=== PATIENT | male | born 1945 | race Caucasian/White ===

== ENCOUNTER 2021-02-24 20:40 | Inpatient (IN) ==
[2021-02-24] MEDS ORDERED: 0.9 % Sodium Chloride 1,000 ML IVC ONE (21:52)
[2021-02-24] MEDS ORDERED: Isovue-370 500 ML BOTTLE IVP ONE (21:55)
[2021-02-24 22:31] LABS: Basophils % 0.4 %; Eosinophils % 0.8 %; Hematocrit 27.8 % (37.5-50.1); Hemoglobin 9.2 g/dL (12.9-16.9); Immature Granulocytes % 0.4 % (0-4); Immature Platelets 7.3 % (1.1-6.1); Lymphocytes # 0.7 K/mcL (0.6-4.6); Lymphocytes % 27.8 %; Mean Corpuscular HGB Conc 33.1 g/dL (31.6-35.5); Mean Corpuscular Hemoglobin 33.8 pg (28.0-33.3); Mean Corpuscular Volume 102.2 fL (83.0-100.0); Mean Platelet Volume 11.5 fL (9.4-12.4); Monocytes # 0.3 K/mcL (0.0-1.3); Monocytes % 12.5 %; Neutrophils # 1.5 K/mcL (1.6-8.9); Platelet Count 68 K/mcL (140-400); Red Blood Count 2.72 M/mcL (4.19-5.50); Red Cell Distribution Width 14.3 % (11.5-14.5); Segmented Neutrophils % 58.1 %; White Blood Count 2.6 K/mcL (4.3-11.1)
[2021-02-24 22:41] LABS: INR 1.1
[2021-02-24 22:52] LABS: Alanine Aminotransferase 9 Units/L (7-52); Albumin/Globulin Ratio 1.2 (1.1-2.2); Alkaline Phosphatase 105 Units/L (34-104); Aspartate Amino Transferase 15 Units/L (13-39); BUN/Creatinine Ratio 11 (6-26); Bilirubin,Total 0.2 mg/dL (0.3-1.0); Blood Urea Nitrogen 13 mg/dL (8-23); Calcium 8.1 mg/dL (8.6-10.3); Carbon Dioxide 23 mEq/L (23-29); Chloride 101 mEq/L (98-107); Globulin 2.5 g/dL (2.4-3.5); Glucose 112 mg/dL (70-105); Osmolality,Calculated 271 (280-300); Potassium 3.7 mEq/L (3.5-5.1); Sodium 130 mEq/L (136-145); Total Protein 5.5 g/dL (6.4-8.9); Troponin I < 0.03 ng/mL (< 0.04); eGFR For African Americans > 60 (> 60); eGFR For Non-African Americans > 60 (> 60)
[2021-02-25 02:31] LABS: Ethanol < 10 mg/dL (Less than 10)
[2021-02-25] MEDS ORDERED: Ondansetron 4 MG/2 ML VIAL IVP PRN (02:48)
[2021-02-25] MEDS ORDERED: Naloxone 0.4 MG/ML INJ IVP PRN (02:48)
[2021-02-25] MEDS ORDERED: 0.9 % Sodium Chloride 1,000 ML IVC SCH (04:00)
[2021-02-25 04:20] LABS: Mean Corpuscular Volume 102.8 fL (83.0-100.0); Red Cell Distribution Width 14.2 % (11.5-14.5)
[2021-02-25 04:22] LABS: Hematocrit 29.4 % (37.5-50.1); Hemoglobin 9.6 g/dL (12.9-16.9); Immature Platelets 8.7 % (1.1-6.1); Mean Corpuscular HGB Conc 32.7 g/dL (31.6-35.5); Mean Corpuscular Hemoglobin 33.6 pg (28.0-33.3); Mean Platelet Volume 11.6 fL (9.4-12.4); Red Blood Count 2.86 M/mcL (4.19-5.50); White Blood Count 2.4 K/mcL (4.3-11.1)
[2021-02-25 04:25] LABS: BUN/Creatinine Ratio 11 (6-26); Blood Urea Nitrogen 13 mg/dL (8-23); Calcium 8.2 mg/dL (8.6-10.3); Carbon Dioxide 25 mEq/L (23-29); Chloride 103 mEq/L (98-107); Glucose 97 mg/dL (70-105); Osmolality,Calculated 276 (280-300); Potassium 4.1 mEq/L (3.5-5.1); Sodium 133 mEq/L (136-145); eGFR For African Americans > 60 (> 60); eGFR For Non-African Americans 59 (> 60)
[2021-02-25 04:28] LABS: Platelet Count 65 K/mcL (140-400)
[2021-02-25 07:09] LABS: Basophils % 0.4 %; Eosinophils % 1.6 %; Immature Granulocytes % 0.8 % (0-4); Lymphocytes # 0.9 K/mcL (0.6-4.6); Lymphocytes % 37.8 %; Monocytes # 0.3 K/mcL (0.0-1.3); Monocytes % 12.7 %; Neutrophils # 1.1 K/mcL (1.6-8.9); Segmented Neutrophils % 46.7 %
[2021-02-25 07:20] LABS: Platelet Estimate Decreased (Normal)
[2021-02-25] MEDS ORDERED: Perflutren Lipid Microsphere 1.3 ML in 0.9 % Sodium Chloride 8.7 ML IVP PRN (12:52)
[2021-02-25] MEDS: 0.9 % Sodium Chloride 1,000 ML IVC SCH (15:47)
[2021-02-25 17:41] LABS: Folate 4.5 ng/mL (3.0-16.0)
[2021-02-25 18:09] LABS: Ferritin 98 ng/mL (20-250); Iron 104 mcg/dL (65-175)
[2021-02-26] MEDS: 0.9 % Sodium Chloride 1,000 ML IVC SCH (04:17)
[2021-02-26 05:07] LABS: Basophils % 0.3 %; Eosinophils # 0.1 K/mcL (0.0-0.6); Eosinophils % 1.9 %; Hematocrit 27.2 % (37.5-50.1); Immature Granulocytes % 0.8 % (0-4); Immature Platelets 7.6 % (1.1-6.1); Lymphocytes # 1.2 K/mcL (0.6-4.6); Lymphocytes % 31.2 %; Mean Corpuscular HGB Conc 33.1 g/dL (31.6-35.5); Mean Corpuscular Hemoglobin 33.3 pg (28.0-33.3); Mean Corpuscular Volume 100.7 fL (83.0-100.0); Monocytes # 0.3 K/mcL (0.0-1.3); Neutrophils # 2.2 K/mcL (1.6-8.9); Platelet Count 54 K/mcL (140-400); Red Cell Distribution Width 14.2 % (11.5-14.5); Segmented Neutrophils % 56.8 %; White Blood Count 3.8 K/mcL (4.3-11.1)
[2021-02-26 05:07] LABS: Bilirubin,Urine Negative (Negative); Blood,Urine Negative (Negative); Clarity,Urine Clear (Clear); Color,Urine Colorless (Yellow); Glucose,Urine (UA) Normal (Normal); Ketones,Urine Negative (Negative); Leukocyte Esterase,Urine Negative (Negative); Nitrite,Urine Negative (Negative); PH,Urine 6.5 pH Units (5.0-8.0); Protein,Urine Negative (Neg-Trace); Specific Gravity,Urine 1.011 (1.010-1.025); Urobilinogen,Urine Normal (Normal)
[2021-02-26 05:24] LABS: BUN/Creatinine Ratio 11 (6-26); Blood Urea Nitrogen 11 mg/dL (8-23); Calcium 8.3 mg/dL (8.6-10.3); Carbon Dioxide 23 mEq/L (23-29); Chloride 104 mEq/L (98-107); Glucose 92 mg/dL (70-105); Osmolality,Calculated 273 (280-300); Sodium 132 mEq/L (136-145); eGFR For African Americans > 60 (> 60); eGFR For Non-African Americans > 60 (> 60)
[2021-02-26] MEDS ORDERED: Cyanocobalamin (B-12) 1,000 MCG TABLET PO SCH (13:30)
[2021-02-26] MEDS: Metoprolol XL (24 HR) Succ 25 MG TAB.ER.24H PO SCH (14:31)
[2021-02-26] MEDS: Budesonide/Formoterol 160/4.5 1 PUFF INH IH SCH (20:33)
[2021-02-26] MEDS: Thiamine (B-1) 100 MG TABLET PO SCH (20:40)
[2021-02-26] MEDS ORDERED: NON-FORMULARY MEDICATION 1 EACH EACH (Atorvastatin Calcium [Lipitor] 80 MG Tablet) PO SCH (21:00)
[2021-02-27 04:50] LABS: Basophils % 0.3 %; Immature Granulocytes % 0.5 % (0-4); Mean Corpuscular Volume 101.8 fL (83.0-100.0); Red Cell Distribution Width 14.1 % (11.5-14.5)
[2021-02-27 04:51] LABS: Eosinophils # 0.1 K/mcL (0.0-0.6); Eosinophils % 2.4 %; Hematocrit 28.6 % (37.5-50.1); Hemoglobin 9.5 g/dL (12.9-16.9); Immature Platelets 7.7 % (1.1-6.1); Lymphocytes # 1.2 K/mcL (0.6-4.6); Lymphocytes % 32.7 %; Mean Corpuscular HGB Conc 33.2 g/dL (31.6-35.5); Mean Corpuscular Hemoglobin 33.8 pg (28.0-33.3); Mean Platelet Volume 11.7 fL (9.4-12.4); Monocytes # 0.3 K/mcL (0.0-1.3); Monocytes % 8.2 %; Neutrophils # 2.1 K/mcL (1.6-8.9); Red Blood Count 2.81 M/mcL (4.19-5.50); Segmented Neutrophils % 55.9 %; White Blood Count 3.8 K/mcL (4.3-11.1)
[2021-02-27 04:54] LABS: Platelet Count 57 K/mcL (140-400)
[2021-02-27 05:09] LABS: BUN/Creatinine Ratio 12 (6-26); Blood Urea Nitrogen 14 mg/dL (8-23); Calcium 8.9 mg/dL (8.6-10.3); Carbon Dioxide 25 mEq/L (23-29); Chloride 101 mEq/L (98-107); Glucose 92 mg/dL (70-105); Osmolality,Calculated 270 (280-300); Potassium 4.5 mEq/L (3.5-5.1); Sodium 130 mEq/L (136-145); eGFR For African Americans > 60 (> 60); eGFR For Non-African Americans > 60 (> 60)
[2021-02-27 05:13] LABS: Platelet Estimate Decreased (Normal); Poikilocytosis 1+ (Not Present)
[2021-02-27] MEDS: Budesonide/Formoterol 160/4.5 1 PUFF INH IH SCH (07:59)
[2021-02-27] MEDS ORDERED: Zinc Sulfate 220 MG CAPSULE PO SCH (09:00)
[2021-02-27] MEDS ORDERED: Ascorbic Acid 500 MG TABLET PO SCH (09:00)
[2021-02-27] MEDS ORDERED: Cholecalciferol (D-3) 1,000 UNIT (25MCG) TABLET PO SCH (09:00)
[2021-02-27] MEDS ORDERED: Latanoprost 2.5 ML BOTTLE BOTH EYES SCH (09:00)
[2021-02-27] MEDS: Thiamine (B-1) 100 MG TABLET PO SCH (09:33)
[2021-02-27] MEDS: Metoprolol XL (24 HR) Succ 25 MG TAB.ER.24H PO SCH (09:33)
[2021-02-27 11:19] VITALS: BP 120/66; PULSE 80; TEMP 98.5; O2SAT 95
[2021-03-01 13:46] LABS: % Iron Saturation 45 % (20-55); Transferrin 166 mg/dL (200-400)
== END 2021-02-27 14:30 | disposition home or self-care (01) | DRG 312 ==
LOC: EMEROOARM 20:40 → 4WAOSI 20:40 → SUATTDRO 02-25 02:08 → 4WAOSI 02-25 02:53
PROVIDERS: ADMIT Internal Medicine; ATTEND General Practice